=== PATIENT | male | born 1945 | race Caucasian/White ===

== ENCOUNTER 2016-12-16 14:29 | Outpatient (CLI) | payer MEDICARE, OTHER ==
--- NOTE | 2016-12-17 07:19 | Ultrasound Report ---
BILATERAL TESTICULAR ULTRASOUND: 12/16/2016 CLINICAL HISTORY: Patient has prostate cancer. TECHNIQUE: Real-time scanning was performed with union representative static images obtained. FINDINGS: Right testicle measures 4.6 x 2.0 x 3.4 cm. Right epididymis measures 3.2 x 0.8 x 1.1 cm. Right testicle shows normal parenchymal pattern and normal vascular flow. Right epididymis appears normal in size. Left testicle measures 4.1 x 2.1 x 3.0 cm. There is a small epididymal cyst or spermatocele present in the head of the epididymis measuring 0.2 x 0.3 x 0.4 cm. Right testicle shows normal parenchymal pattern and vascular flow. The exam of the left epididymis was limited. The tail of the left epididymis was not seen. IMPRESSION: TINY CYST OR SPERMATOCELE IS NOTED IN THE LEFT EPIDIDYMAL HEAD MEASURING 0.2 X 0.3 X 0.4 CM WITHOUT OTHER ABNORMALITY NOTED. JOB #: [id number] EXT JOB #:[id number]
== END 2016-12-16 14:30 | disposition home or self-care (01) ==
LOC: DI 14:29
PROVIDERS: ATTEND Urology
DX: C61 Malignant neoplasm of prostate (principal); F52.21 Male erectile disorder; N50.9 Disorder of male genital organs, unspecified
CPT/HCPCS: 76870

== ENCOUNTER 2017-03-29 07:45 | Outpatient (CLI) | payer MEDICARE, OTHER ==
[2017-03-29] MEDS ORDERED: IOPAMIDOL-300 50 ML VIAL ONE (07:50)
[2017-03-29] MEDS ORDERED: IOPAMIDOL-300 100 ML VIAL ONE (07:50)
[2017-03-29] MEDS ORDERED: IOPAMIDOL-300 50 ML VIAL PO ONE (08:36)
[2017-03-29] MEDS ORDERED: IOPAMIDOL-300 100 ML VIAL IVP ONE (08:36)
--- NOTE | 2017-03-29 23:41 | CT Report ---
EXAM: CT ABDOMEN AND PELVIS EXAM DATE: 03/29/2017 09:32 AM. CLINICAL HISTORY: Abdominal discomfort, weight loss. COMPARISONS: 07/28/2015. TECHNIQUE: Routine helical CT imaging was performed through the abdomen and pelvis. IV contrast: Yes . Enteric contrast: Yes. Reconstructions: Coronal and sagittal. In accordance with CT protocol optimization, one or more of the following dose reduction techniques w ere utilized for this exam: automated exposure control, adjustment of mA and/or KV based on patient s ize, or use of iterative reconstructive technique. FINDINGS: Lung Bases: Very small hiatal hernia, otherwise unremarkable. Liver: Scattered small cysts. No suspicious masses. Gallbladder/Bile Ducts: Unremarkable. Spleen: Unremarkable. Pancreas: Unremarkable. Adrenal Glands: Unremarkable. Kidneys: Tiny right renal cyst. No suspicious masses or hydronephrosis. Peritoneal Cavity/Bowel: No bowel obstruction or inflammatory process seen. No free air or significan t free fluid. No masses or adenopathy. The appendix is normal. No excessive stool burden. Pelvic Organs: Bladder and prostate appear unremarkable. Penile pump present. Vasculature: No aneurysms or other significant abnormality. Bones: No significant abnormality. Other: None. IMPRESSION: 1. No etiology for abdominal discomfort and weight loss seen. 2. Very small hiatal hernia. [facility] Referring Provider Line: [phone] SITE ID: [id number]
== END 2017-03-29 07:46 | disposition home or self-care (01) ==
LOC: LAB 07:45
PROVIDERS: ATTEND Internal Medicine
DX: R10.9 Unspecified abdominal pain (principal); R63.4 Abnormal weight loss; K44.9 Diaphragmatic hernia without obstruction or gangrene
CPT/HCPCS: 36415; 74177; 82565; Q9967

== ENCOUNTER 2017-06-23 09:21 | Emergency (ER) | payer OTHER ==
--- NOTE | 2017-06-23 09:37 | ED Physician Documentation ---
PD HPI SYNCOPE - Stated complaint Stated Complaint: SYNCOPE - Chief complaint Chief Complaint: Neuro - History obtained from History obtained from: Patient, Family - History of Present Illness Witnessed: Unwitnessed Timing - onset: Today Duration: Minutes Preceding symptoms: Vision changes, Light headed Associated symptoms: Nausea / vomiting Contributing factors: Other (sick with cough and congestion) Injury occurred: Head injury Similar symptoms before: Has not had sx before Recently seen: Not recently seen - Additional information Additional information: 72-year-old male with a history of hypertension and prostate cancer has developed a cough and congestion over the past several days and at about 4:00 in the morning he got up to go to the bathroom and he felt weak and lightheaded and dizzy and collapsed. He got up and got back to bed when he got up to go to the bathroom again in the morning at 9:00 his heard him collapse on the second episode of syncope. When she arrived there she states it took about 1 minute for the patient to become conscious again. He did have some vomiting after the first episode. He did injure his head on the first episode. Review of Systems Constitutional: reports: Fatigue. denies: Fever Eyes: denies: Decreased vision Ears: reports: Ear pain Nose: reports: Rhinorrhea / runny nose, Congestion Throat: reports: Sore throat Cardiac: denies: Chest pain / pressure, Palpitations Respiratory: reports: Cough. denies: Dyspnea GI: reports: Nausea, Vomiting : denies: Dysuria, Frequency Skin: denies: Rash Musculoskeletal: denies: Neck pain, Back pain, Extremity pain Neurologic: reports: Syncope, Head injury. denies: Generalized weakness, Focal weakness, Numbness PD PAST MEDICAL HISTORY - Past Medical History Cardiovascular: Hypertension, High cholesterol Respiratory: None Endocrine/Autoimmune: None GI: GERD : None, Other HEENT: Glaucoma, Other Psych: None Musculoskeletal: None Derm: None - Past Surgical History Ortho: Other HEENT: Other - Present Medications Home Medications: Ambulatory Orders Medication Instructions Recorded Confirmed Brinzolamide/Brimonidine Tart 1 drop EACHEYE BID 08/22/15 10/24/15 [Simbrinza 1%-0.2% Eye Drops] Cholecalciferol (Vitamin D3) 1,000 unit PO QPM 08/22/15 10/24/15 [Vitamin D] Cyclosporine [Restasis] 1 drop EACHEYE BID 08/22/15 10/24/15 Fenofibrate 145 mg PO DAILY 08/22/15 10/24/15 Glucosamine/D3/Boswellia Emmie 1,500 mg PO QPM 08/22/15 10/24/15 [Glucosamine Daily Complex Tab] Guaifenesin/Codeine Phosphate 5 ml PO QPM 08/22/15 08/22/15 [Guaifenesin AC Cough Syrup] Lisinopril [Zestril] 5 mg PO DAILY 08/22/15 10/24/15 Omeprazole [Prilosec] 40 mg PO DAILY 08/22/15 10/24/15 Pravastatin Sodium [Pravachol] 80 mg PO QPM 08/22/15 10/24/15 Azithromycin [Zithromax] 250 mg PO DAILY #6 tablet 06/23/17 - Allergies Allergies/Adverse Reactions: Allergies Allergy/AdvReac Type Severity Reaction Status Date / Time No Known Drug Allergies Allergy Verified 10/24/15 13:29 PD ED PE NORMAL - Vitals Vital signs reviewed: Yes - General General: Alert and oriented X 3, No acute distress, Well developed/nourished - HEENT HEENT: Atraumatic, PERRL, EOMI, Other - Neck Neck: Supple, no meningeal sign, No bony TTP - Cardiac Cardiac: RRR, No murmur - Respiratory Respiratory: No respiratory distress, Clear bilaterally - Abdomen Abdomen: Soft, Non tender - Back Back: No CVA TTP, No spinal TTP - Derm Derm: Normal color, Warm and dry, No rash - Extremities Extremities: No deformity, No edema - Neuro Neuro: Alert and oriented X 3, No motor deficit, No sensory deficit, Normal speech Eye Opening: Spontaneous Motor: Obeys Commands Verbal: Oriented GCS Score: 15 - Psych Psych: Normal mood, Normal affect Results - Vitals Vitals: Vital Signs - 24 hr 06/23/17 06/23/17 09:30 10:19 Temperature 36.8 C Heart Rate 78 82 Respiratory 12 18 Rate Blood Pressure 128/85 H 125/78 O2 Saturation 96 95 Oxygen O2 Source Room air - EKG (time done) 0930 Rate: Rate (enter#) (76) Other comments: Other comments (early transition) Compare to prior EKG: Old EKG unavailable Computer interpretation: Agree with computer - Labs Labs: Laboratory Tests 06/23/17 06/23/17 06/23/17 09:50 09:50 09:50 WBC 9.1 RBC 4.46 L Hgb 13.7 L Hct 39.5 L MCV 88.6 MCH 30.7 MCHC 34.7 RDW 12.8 Plt Count 198 MPV 8.6 Neut # 8.0 H Lymph # 0.4 L Clay # 0.7 Eos # 0.0 Baso # 0.0 Absolute Nucleated RBC 0.01 Nucleated RBC % 0.1 Sodium 134 L Potassium 3.7 Chloride 101 Carbon Dioxide 22 Anion Gap 11.0 BUN 12 Creatinine 1.1 Estimated GFR (MDRD) 66 L Glucose 156 H Calcium 9.4 Total Bilirubin 0.9 AST 21 ALT 18 Alkaline Phosphatase 30 L Troponin I < 0.04 Total Protein 7.7 Albumin 4.7 Globulin 3.0 Albumin/Globulin Ratio 1.6 Lipase 25 - Rads (name of study) CT head without Radiology: Prelim report reviewed (Impression: 1. No acute intracranial abnormal family identified. 2. Evidence of diffuse parenchymal volume loss and small amount of probable chronic microvascular ischemic change, likely age- related.), EMP read indepedently, See rad report Procedures - IVC sono (time) 1020 Bedside IVC sono: IVC measures (cm) (1.3), IVC collapsed c insp (cm) (complete) , Dehydration (est 1 liter down) PD MEDICAL DECISION MAKING - ED course Complexity details: reviewed old records, reviewed results, re-evaluated patient , considered differential, d/w patient, d/w family ED course: 72-year-old male with a history of hypertension and and prostate cancer has had 2 syncopal episodes this morning. He has had an upper respiratory tract infection over the past several days and this morning on evaluation here in the emergency department he is found to have otitis in the right middle ear and he does appear dehydrated on interrogation of the inferior vena cava. He is administered a liter of saline and 10 mg of dexamethasone intravenously and he did have head injury associated with the episode of syncope and vomiting following that a CT scan of the head is obtained as well. Electrocardiogram is normal appearing. Departure - Departure Disposition: 01 Home, Self Care Clinical Impression: Dehydration Otitis media Qualifiers: Otitis media type: suppurative Chronicity: acute Laterality: right Recurrence: not specified as recurrent Spontaneous tympanic membrane rupture: without spontaneous rupture Qualified Code(s): H66.001 - Acute suppurative otitis media without spontaneous rupture of ear drum, right ear Condition: Stable Instructions: ED Dehydration, ED Otitis Media Acute Adult Follow-Up: Nadia Schaeffer MD [Primary Care Provider] - Prescriptions: Azithromycin [Zithromax] 250 mg PO DAILY #6 tablet
[2017-06-23 10:20] VITALS: BP 125/78
[2017-06-23] MEDS ORDERED: DEXAMETHASONE 10 MG/ML VIAL IVP STA (10:26)
[2017-06-23] MEDS ORDERED: SODIUM CHLORIDE 0.9% 1,000 ML IV ONE (10:26)
[2017-06-23 10:33] LABS: BASOPHILS % (AUTO) 0.1 %; EOSINOPHILS % (AUTO) 0.2 %; HGB - HEMOGLOBIN 13.7 g/dL (14.0-18.0); LYMPHOCYTES # (AUTO) 0.4 10^3/uL (1.5-3.5); LYMPHOCYTES % (AUTO) 3.9 %; MEAN CORPUSCULAR HEMOGLOBIN 30.7 pg (27.0-31.0); MEAN CORPUSCULAR HGB CONC 34.7 g/dL (32.0-36.0); MEAN CORPUSCULAR VOLUME 88.6 fL (80.0-94.0); MEAN PLATELET VOLUME 8.6 fL (7.4-11.4); MONOCYTES # (AUTO) 0.7 10^3/uL (0.0-1.0); MONOCYTES % (AUTO) 7.8 %; PLT - PLATELET COUNT 198 10^3/uL (130-450); RED BLOOD COUNT 4.46 10^6/uL (4.70-6.10); RED CELL DISTRIBUTION WIDTH 12.8 % (12.0-15.0); WHITE BLOOD COUNT 9.1 x10^3/uL (4.8-10.8)
[2017-06-23 10:47] LABS: ALBUMIN 4.7 g/dL (3.2-5.5); ALBUMIN/GLOBULIN RATIO 1.6 (1.0-2.2); BILIRUBIN,TOTAL 0.9 mg/dL (0.2-1.0); CALCIUM 9.4 mg/dL (8.5-10.3); CREATININE 1.1 mg/dL (0.6-1.2); TOTAL PROTEIN 7.7 g/dL (6.7-8.2)
--- NOTE | 2017-06-23 12:54 | CT Report ---
EXAM: CT HEAD EXAM DATE: 06/23/2017 10:53 AM. CLINICAL HISTORY: Syncope, fall, head injury, vomiting. . COMPARISON: None. TECHNIQUE: Multiaxial CT images were obtained from the foramen magnum to the vertex. Reformats: Coron al. IV contrast: None. In accordance with CT protocol optimization, one or more of the following dose reduction techniques w ere utilized for this exam: automated exposure control, adjustment of mA and/or KV based on patient s ize, or use of iterative reconstructive technique. FINDINGS: Parenchyma: There is evidence of diffuse parenchymal volume loss. Minimal low-attenuation in the nilsa ventricular white matter. Dockery-white differentiation appears maintained. No acute hemorrhage, mass ef fect or midline shift. Extraaxial Spaces: Evidence of diffuse parenchymal volume loss with no acute extra axial collection i dentified. Ventricles: Appropriate in size and configuration. Sinuses and Orbits: Small amount of ethmoid opacity bilaterally, otherwise visualized paranasal sinus es and mastoid air cells appear clear. Bones: No depressed skull fracture. Other: None. IMPRESSION: 1. No acute intracranial abnormality identified. 2. Evidence of diffuse parenchymal volume loss and small amount of probable chronic microvascular isc hemic change, likely age-related. [facility] Referring Provider Line: [phone] SITE ID: [id number]
--- NOTE | 2017-06-23 12:54 | CT Preliminary Report ---
Exam: CT HEAD W/O IMPRESSION: 1. No acute intracranial abnormality identified. 2. Evidence of diffuse parenchymal volume loss and small amount of probable chronic microvascular isc hemic change, likely age-related. [facility] SITE ID: [id number]
== END 2017-06-23 13:30 | disposition home or self-care (01) ==
LOC: ED 09:21
DX: E86.0 Dehydration (principal); H66.001 Acute suppurative otitis media without spontaneous rupture of ear drum, right ear; I10 Essential (primary) hypertension; E78.00 Pure hypercholesterolemia, unspecified; C61 Malignant neoplasm of prostate
CPT/HCPCS: 36415; 70450; 80053; 83690; 84484; 85025; 93005; 96361; 96374; 99284

== ENCOUNTER 2017-06-26 11:16 | Emergency (ER) | payer OTHER ==
--- NOTE | 2017-06-26 12:32 | ED Physician Documentation ---
History of Present Illness - Stated complaint Stated Complaint: HEAD PX - Chief complaint Chief Complaint: Neuro - History obtained from History obtained from: Patient (pt was here on friday after a fall at home. he had a neg head CT. not on anticoagulation. since then the pt and his state that he has had increase in headaches and pain in the back of his head. he also has developed a bruise over his left eye. headaches are bilateral, no wose with position, not worse with palpation, not worse with light. No fevers. decreased PO intake.), Family Review of Systems Constitutional: denies: Fever, Chills Eyes: denies: Loss of vision, Decreased vision, Photophobia Ears: reports: Tinnitus/ringing Nose: denies: Congestion, Sinus pressure / pain Throat: denies: Dental pain / toothache, Oral lesions / sores Cardiac: denies: Chest pain / pressure Respiratory: denies: Dyspnea GI: reports: Nausea. denies: Abdominal Pain, Vomiting, Constipation, Diarrhea : denies: Dysuria Skin: reports: Abrasion (s) (above left eye). denies: Rash Musculoskeletal: denies: Neck pain, Back pain, Extremity pain, Joint pain Neurologic: reports: Headache PD PAST MEDICAL HISTORY - Past Medical History Cardiovascular: Hypertension, High cholesterol Respiratory: None Endocrine/Autoimmune: None GI: GERD : None, Other HEENT: Glaucoma, Other Psych: None Musculoskeletal: None Derm: None - Past Surgical History Past Surgical History: Yes Ortho: Other HEENT: Other - Present Medications Home Medications: Ambulatory Orders Medication Instructions Recorded Confirmed Brinzolamide/Brimonidine Tart 1 drop EACHEYE BID 08/22/15 10/24/15 [Simbrinza 1%-0.2% Eye Drops] Cholecalciferol (Vitamin D3) 1,000 unit PO QPM 08/22/15 10/24/15 [Vitamin D] Cyclosporine [Restasis] 1 drop EACHEYE BID 08/22/15 10/24/15 Fenofibrate 145 mg PO DAILY 08/22/15 10/24/15 Glucosamine/D3/Boswellia Emmie 1,500 mg PO QPM 08/22/15 10/24/15 [Glucosamine Daily Complex Tab] Guaifenesin/Codeine Phosphate 5 ml PO QPM 08/22/15 08/22/15 [Guaifenesin AC Cough Syrup] Lisinopril [Zestril] 5 mg PO DAILY 08/22/15 10/24/15 Omeprazole [Prilosec] 40 mg PO DAILY 08/22/15 10/24/15 Pravastatin Sodium [Pravachol] 80 mg PO QPM 08/22/15 10/24/15 Azithromycin [Zithromax] 250 mg PO DAILY #6 tablet 06/23/17 Amitriptyline [Elavil] 25 mg PO QPM #30 tablet 06/26/17 Ondansetron Odt [Zofran Odt] 4 mg TL Q6H PRN #10 tablet 06/26/17 - Allergies Allergies/Adverse Reactions: Allergies Allergy/AdvReac Type Severity Reaction Status Date / Time No Known Drug Allergies Allergy Verified 06/26/17 11:25 - Social History Does the pt smoke?: No Smoking Status: Never smoker Does the pt drink ETOH?: No Does the pt have substance abuse?: No - Immunizations Immunizations are current?: Yes PD ED PE NORMAL - Vitals Vital signs reviewed: Yes - General General: Alert and oriented X 3, No acute distress, Well developed/nourished - HEENT HEENT: Atraumatic, Ears normal, Moist mucous membranes, Pharynx benign - Neck Neck: No bony TTP - Cardiac Cardiac: RRR, No murmur - Respiratory Respiratory: No respiratory distress - Abdomen Abdomen: Soft - Derm Derm: Other (3 cm bruise over the upper lateral portion of the left eye, no active bleeding. 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, No motor deficit, No sensory deficit, Normal speech Eye Opening: Spontaneous Motor: Obeys Commands Verbal: Oriented GCS Score: 15 - Psych Psych: Normal mood, Normal affect Results - Vitals Vitals: Vital Signs - 24 hr 06/26/17 06/26/17 11:20 13:00 Temperature 35.9 C L Heart Rate 60 56 L Respiratory 18 12 Rate Blood Pressure 157/95 H 157/82 H O2 Saturation 99 99 Oxygen O2 Source Room air - Rads (name of study) Head and facial bone CT Radiology: Final report received (no acute process), EMP read contemporaneously PD MEDICAL DECISION MAKING - ED course Complexity details: reviewed old records, reviewed results, re-evaluated patient , considered differential, d/w patient ED course: pt with sx that are C/W post concussive syndrome. no new bleed on the the CT scans. had a long discussion with the family about the symptoms. we discussed medications and "brain rest". we discussed that they needed to follow up with their primary care provider for a follow up and to discuss neurology consult. Departure - Departure Disposition: 01 Home, Self Care Clinical Impression: Post concussive syndrome Condition: Good Instructions: TBI Follow-Up: Nadia Schaeffer MD [Primary Care Provider] - Prescriptions: Amitriptyline [Elavil] 25 mg PO QPM #30 tablet Ondansetron Odt [Zofran Odt] 4 mg TL Q6H PRN #10 tablet PRN Reason: Nausea / Vomiting Comments: Call your primary care provider for a follow up and to discuss a consult to see a headache specialist. avoid the activities that make your headache worse.
--- NOTE | 2017-06-26 13:20 | CT Report ---
EXAM: CT HEAD EXAM DATE: 06/26/2017 01:03 PM. CLINICAL HISTORY: Fall and headache. COMPARISON: 06/23/2017. TECHNIQUE: Multiaxial CT images were obtained from the foramen magnum to the vertex. Reformats: Coron al. IV contrast: None. In accordance with CT protocol optimization, one or more of the following dose reduction techniques w ere utilized for this exam: automated exposure control, adjustment of mA and/or KV based on patient s ize, or use of iterative reconstructive technique. FINDINGS: Parenchyma: No intraparenchymal hemorrhage. No evidence of mass, midline shift, or CT findings of acu te infarction. Dockery-white differentiation is distinct. Diffuse chronic microangiopathic white matter changes Extraaxial Spaces: Normal for age. No subdural or epidural collections. Ventricles: The ventricles and cortical sulci are enlarged, consistent with age-related tissue loss. Sinuses and orbits: Imaged paranasal sinuses, orbits, and mastoids show no significant abnormality. Bones: Unremarkable. Other: None. IMPRESSION: Generalized age-related cortical atrophic changes without evidence of acute intracranial abnormality. [facility] Referring Provider Line: [phone] SITE ID: [id number]
--- NOTE | 2017-06-26 13:24 | CT Preliminary Report ---
Exam: CT FACIAL BONES W/O IMPRESSION: 1. CT findings suggesting small left superior periorbital hematoma. No intraorbital extension. 2. No definite facial fracture. 3. The orbits appear normal with no mass, inflammatory process, or fluid collections seen. [facility] SITE ID: [id number]
--- NOTE | 2017-06-26 13:24 | CT Report ---
EXAM: CT MAXILLOFACIAL WITHOUT CONTRAST EXAM DATE: 06/26/2017 01:03 PM. CLINICAL HISTORY: Fall and left eye bruising. COMPARISONS: CT head 06/26/2017, 06/23/2017. TECHNIQUE: Thin-section axial images were acquired of the face without contrast. Post-processing: Cor onal and sagittal reformats. Other: None. In accordance with CT protocol optimization, one or more of the following dose reduction techniques w ere utilized for this exam: automated exposure control, adjustment of mA and/or KV based on patient s ize, or use of iterative reconstructive technique. FINDINGS: Soft Tissue: There is slight left superior periorbital soft tissue thickening which may represent sma ll hematoma. No intraorbital extension. Otherwise soft tissues of the face appear normal.The infratem poral fossa and parapharyngeal spaces are unremarkable. Orbits: Changes of bilateral lens replacement. Otherwise the orbits appear normal. Bones: No fracture or bone lesion. Temporomandibular Joints: The temporomandibular joints are symmetric and normally located. Sinuses: Small bilateral maxillary mucosal retention cysts versus polyps with mild mucosal thickening of the right and mild to moderate mucosal thickening in the left maxillary sinus. Small w with sinus mucosal retention cyst versus polyp. There is mild to moderate mucosal thickening of the ethmoid air cells. There is minimal mucosal thickening of the frontal sinus. Mastoid air cells and middle ear ca vities are clear. Other: None. IMPRESSION: 1. CT findings suggesting small left superior periorbital hematoma. No intraorbital extension. 2. No definite facial fracture. 3. The orbits appear normal with no mass, inflammatory process, or fluid collections seen. [facility] Referring Provider Line: [phone] SITE ID: [id number]
[2017-06-26] MEDS ORDERED: ONDANSETRON ODT 4 MG TABLET TL STA (13:44)
[2017-06-26 13:59] VITALS: BP 148/93
[2017-06-26] MEDS ORDERED: HYDROcod/ACETAM 5/325 MG TABLET PO STA (14:25)
== END 2017-06-26 14:25 | disposition home or self-care (01) ==
LOC: ED 11:16
DX: F07.81 Postconcussional syndrome (principal); I10 Essential (primary) hypertension; E78.00 Pure hypercholesterolemia, unspecified
CPT/HCPCS: 70450; 70486; 99283; A9270; Q0162

== ENCOUNTER 2017-09-24 12:51 | Outpatient (CLI) | payer MEDICARE, OTHER ==
[~2017-09-24 12:51] MED LIST: GADOBUTROL 7.5 MMOL/7.5 ML VIAL ONE
[2017-09-24] MEDS ORDERED: GADOBUTROL 7.5 MMOL/7.5 ML VIAL IVP ONE (13:37)
--- NOTE | 2017-09-24 14:17 | MRI Report ---
EXAM: MRI BRAIN WITHOUT AND WITH CONTRAST EXAM DATE: 09/24/2017 12:57 PM. CLINICAL HISTORY: MENTAL STATUS CHANGE. COMPARISON: CT head 06/26/2017 TECHNIQUE: Multiplanar, multisequence T1-weighted and fluid-sensitive MR sequences of the brain were performed. Sequences optimized for routine evaluation. Other: None. IV Contrast: Yes. 7.5 mL Gadavist FINDINGS: Brain Volume: Normal for age. Parenchyma: No evidence of acute or subacute infarct. Prominent bilateral frontoparietal subdural hem orrhages have [id number] mass effect on the underlying brain parenchyma as evidenced by sulcal effacement. However, given nearly equal size, no midline shift. Few FLAIR hyperintense subcortical wh ite matter lesions within cerebral hemispheres bilaterally. No evidence of parenchymal hemorrhage or parenchymal microhemorrhages. No abnormal parenchymal enhancement. Ventricles/Cisterns: No hydrocephalus. Bilateral frontoparietal subdural hemorrhages, somewhat hetero geneous, likely representing acute on subacute/chronic subdural hemorrhages. The right-sided subdural hemorrhage measures maximally 1.7 cm in width and the left subdural hemorrhage maximally measures 1. 7 cm. Orbits: Status post bilateral lens replacement surgery. The visualized orbits are otherwise unremarka ble. Sella Turcica: The pituitary gland, cavernous sinuses, suprasellar cistern and optic chiasm are unrem arkable. IAC: Symmetric and unremarkable. Vasculature: Normal signal flow void is seen in the major arterial structures at the skull base. The dural sinuses are patent and enhance normally. Sinuses: Mild mucosal thickening bile maxillary sinuses. Bones: No focal pathologic appearing marrow signal changes. Other: None. IMPRESSION: 1. Bilateral frontoparietal subdural hemorrhages, somewhat heterogeneous, likely representing acute o n subacute/chronic subdural hemorrhages. The right-sided subdural hemorrhage measures maximally 1.7 c m in width and the left subdural hemorrhage maximally measures 1.7 cm. 2. No evidence of acute or subacute infarct. 3. Prominent bilateral frontoparietal subdural hemorrhages have hvwn-[id number] mass effect on the u nderlying brain parenchyma as evidenced by sulcal effacement. However, given nearly equal size, no mi dline shift. 4. Few FLAIR hyperintense subcortical white matter lesions within cerebral hemispheres bilaterally. T hese lesions are nonspecific, and can be seen with the entire gamut of white matter conditions, inclu ding migraine headaches and as sequela of chronic microangiopathy. 5. No evidence of parenchymal hemorrhage or parenchymal microhemorrhages. No abnormal parenchymal enh ancement. CRITICAL RESULT: The findings were discussed with Dr. Schaeffer on 09/24/2017 14:10 [facility] The above findings were discussed with Nadia Schaeffer by Dr. Le Caicedo at 14:15 hrs on 09/24/17. Referring Provider Line: [phone] SITE ID: [id number]
== END 2017-09-24 12:52 | disposition home or self-care (01) ==
LOC: DI 12:51
PROVIDERS: ATTEND Internal Medicine
DX: I62.00 Nontraumatic subdural hemorrhage, unspecified (principal)
CPT/HCPCS: 70553; A9585

== ENCOUNTER 2017-09-24 13:52 | Emergency (ER) | payer MEDICARE, OTHER ==
[2017-09-24] MEDS ORDERED: SODIUM CHLORIDE 0.9% 1,000 ML IV ONE (14:16)
--- NOTE | 2017-09-24 14:17 | ED Physician Documentation ---
History of Present Illness - Stated complaint Stated Complaint: MRI RESULT - Chief complaint Chief Complaint: General - History obtained from History obtained from: Patient, Family - History of Present Illness Timing: Other (He had a fall actually 2 falls in June. He had a CT of thehead at the time which was without intracranial hemorrhage. Ever since then he has had increasing global headaches some confusion and feeling unsteady on his feet. He saw his doctor for a routine visit and was referred to MRI which was done today, he was brought over from MRI because he has bilateral subdural hemorrhages. He is not anticoagulated.) Review of Systems Ten Systems: 10 systems reviewed and negative Constitutional: reports: Sweats. denies: Fever Ears: reports: Reviewed and negative Throat: reports: Reviewed and negative Cardiac: reports: Reviewed and negative Respiratory: reports: Reviewed and negative PD PAST MEDICAL HISTORY - Past Medical History Past Medical History: Yes Cardiovascular: Hypertension, High cholesterol Respiratory: None Endocrine/Autoimmune: None GI: GERD : None, Other HEENT: Glaucoma, Other Psych: None Musculoskeletal: None Derm: None - Past Surgical History Past Surgical History: Yes Ortho: Other HEENT: Other - Present Medications Home Medications: Ambulatory Orders Medication Instructions Recorded Confirmed Brinzolamide/Brimonidine Tart 1 drop EACHEYE BID 08/22/15 10/24/15 [Simbrinza 1%-0.2% Eye Drops] Cholecalciferol (Vitamin D3) 1,000 unit PO QPM 08/22/15 10/24/15 [Vitamin D] Cyclosporine [Restasis] 1 drop EACHEYE BID 08/22/15 10/24/15 Fenofibrate 145 mg PO DAILY 08/22/15 10/24/15 Glucosamine/D3/Boswellia Emmie 1,500 mg PO QPM 08/22/15 10/24/15 [Glucosamine Daily Complex Tab] Lisinopril [Zestril] 5 mg PO DAILY 08/22/15 10/24/15 Omeprazole [Prilosec] 40 mg PO DAILY 08/22/15 10/24/15 Amitriptyline [Elavil] 25 mg PO QPM #30 tablet 06/26/17 - Allergies Allergies/Adverse Reactions: Allergies Allergy/AdvReac Type Severity Reaction Status Date / Time No Known Drug Allergies Allergy Verified 06/26/17 11:25 - Social History Does the pt smoke?: No Smoking Status: Never smoker Does the pt drink ETOH?: No Does the pt have substance abuse?: No - Family History Family history: reports: Non contributory - Immunizations Immunizations are current?: Yes PD ED PE NORMAL - Vitals Vital signs reviewed: Yes - General General: Alert and oriented X 3, No acute distress, Well developed/nourished - HEENT HEENT: PERRL, EOMI - Neck Neck: Supple, no meningeal sign, No bony TTP - Cardiac Cardiac: RRR, No murmur - Respiratory Respiratory: No respiratory distress, Clear bilaterally - Abdomen Abdomen: Normal bowel sounds, Non tender - Extremities Extremities: No deformity, No tenderness to palpate - Neuro Neuro: Alert and oriented X 3, authorization coordinator 2-12 intact, No motor deficit, No sensory deficit Eye Opening: Spontaneous Motor: Obeys Commands Verbal: Oriented (NIHSS zero) GCS Score: 15 - Psych Psych: Normal mood, Normal affect Results - Vitals Vitals: Vital Signs - 24 hr 09/24/17 09/24/17 09/24/17 13:59 15:08 16:13 Temperature 36.1 C L Heart Rate 64 61 62 Respiratory 18 15 16 Rate Blood Pressure 149/93 H 137/80 H 142/100 H O2 Saturation 98 100 100 Oxygen O2 Source Room air - EKG (time done) 1441 Rate: Rate (enter#) (57) Rhythm: NSR Angela: Normal Intervals: Normal MT QRS: Normal Ischemia: Non specific changes Computer interpretation: Agree with computer - Labs Labs: Laboratory Tests 09/24/17 09/24/17 09/24/17 14:23 14:23 14:23 WBC 6.5 RBC 3.90 L Hgb 12.0 L Hct 34.1 L MCV 87.5 MCH 30.8 MCHC 35.2 RDW 13.0 Plt Count 243 MPV 8.0 Neut # 4.4 Lymph # 1.2 L [place] # 0.7 Eos # 0.2 Baso # 0.0 Absolute Nucleated RBC 0.00 Nucleated RBC % 0.0 PT 12.4 INR 1.1 APTT 29.5 Sodium 134 L Potassium 3.6 Chloride 104 Carbon Dioxide 25 Anion Gap 5.0 L BUN 13 Creatinine 0.9 Estimated GFR (MDRD) 83 L Glucose 108 H Calcium 9.0 Total Bilirubin 0.3 AST 16 ALT 17 Alkaline Phosphatase 23 L Total Protein 6.4 L Albumin 4.3 Globulin 2.1 Albumin/Globulin Ratio 2.0 Lipase 34 - Rads (name of study) MRI Brain W/WO Radiology: EMP read contemporaneously (1. Bilateral frontoparietal subdural hemorrhages, somewhat heterogeneous, likely representing acute on subacute/ chronic subdural hemorrhages. The right-sided subdural hemorrhage measures maximally 1.7 cm in width and the left subdural hemorrhage maximally measures 1.7 cm. 2. No evidence of acute or subacute infarct. 3. Prominent bilateral frontoparietal subdural hemorrhages have [id number] mass effect on the underlying brain parenchyma as evidenced by sulcal effacement. However, given nearly equal size, no midline shift. 4. Few FLAIR hyperintense subcortical white matter lesions within cerebral hemispheres bilaterally. These lesions are nonspecific, and can be seen with the entire gamut of white matter conditions, including migraine headaches and as sequela of chronic microangiopathy. 5. No evidence of parenchymal hemorrhage or parenchymal microhemorrhages. No abnormal parenchymal enhancement. ) PD MEDICAL DECISION MAKING - ED course ED course: 72-year-old gentleman with acute on chronic subdural hemorrhages by MRI I spoke with Dr. Phan, the surgeon at [facility] and she accepted him in transfer, cobras were completed. He was kept n.p.o. Departure - Departure Disposition: 02 Transfer Acute Care Hosp Clinical Impression: Subdural hemorrhage Condition: Serious Discharge Date/Time: 09/24/17 16:49
[2017-09-24 14:26] LABS: BASOPHILS % (AUTO) 0.5 %; EOSINOPHILS # (AUTO) 0.2 10^3/uL (0.0-0.7); EOSINOPHILS % (AUTO) 3.4 %; LYMPHOCYTES # (AUTO) 1.2 10^3/uL (1.5-3.5); LYMPHOCYTES % (AUTO) 18.1 %; MEAN CORPUSCULAR HEMOGLOBIN 30.8 pg (27.0-31.0); MEAN CORPUSCULAR HGB CONC 35.2 g/dL (32.0-36.0); MEAN CORPUSCULAR VOLUME 87.5 fL (80.0-94.0); MONOCYTES # (AUTO) 0.7 10^3/uL (0.0-1.0); MONOCYTES % (AUTO) 10.1 %; NEUTROPHILS # (AUTO) 4.4 10^3/uL (1.5-6.6); NEUTROPHILS % (AUTO) 67.9 %; PLT - PLATELET COUNT 243 10^3/uL (130-450); WHITE BLOOD COUNT 6.5 x10^3/uL (4.8-10.8)
[2017-09-24 14:31] LABS: INR 1.1 (0.8-1.2); PT - PROTHROMBIN TIME 12.4 secs (9.9-12.6)
[2017-09-24 14:38] LABS: ALBUMIN 4.3 g/dL (3.2-5.5); BILIRUBIN,TOTAL 0.3 mg/dL (0.2-1.0); CREATININE 0.9 mg/dL (0.6-1.2); TOTAL PROTEIN 6.4 g/dL (6.7-8.2)
[2017-09-24 16:16] VITALS: BP 142/100
== END 2017-09-24 16:49 | disposition short-term general hospital (02) ==
LOC: ED 13:52
DX: I62.01 Nontraumatic acute subdural hemorrhage (principal); I62.03 Nontraumatic chronic subdural hemorrhage; I10 Essential (primary) hypertension; E03.9 Hypothyroidism, unspecified; Z91.81 History of falling
CPT/HCPCS: 36415; 80053; 83690; 85025; 85610; 85730; 93005; 96360; 96361; 99284; 99285

== ENCOUNTER 2017-09-24 16:34 | Outpatient (CLI) | payer MEDICARE, OTHER | END 2017-09-24 16:35 | disposition short-term general hospital (02) | LOC: EMS 16:34 | PROVIDERS: ATTEND Surgery | DX: I62.00 Nontraumatic subdural hemorrhage, unspecified (principal) | CPT/HCPCS: A0170; A0425; A0426 ==

== ENCOUNTER 2017-11-07 12:13 | Outpatient (CLI) | payer MEDICARE, OTHER ==
--- NOTE | 2017-11-07 14:34 | XRAY Report ---
CHEST X-RAY: 11/07/2017 HISTORY: Intermittent cough with increasing congestion. COMPARISON: 07/28/[address] and chest x-ray 06/30/2015. FINDINGS: The heart size is normal. The lungs are clear. There is no pleural fluid or pneumothorax. No significant bony pathology or interval change compared with prior. IMPRESSION: NEGATIVE TWO VIEW CHEST X-RAY. TD: 11/07/2017 12:40
== END 2017-11-07 12:14 | disposition home or self-care (01) ==
LOC: DI 12:13
PROVIDERS: ATTEND Internal Medicine
DX: R05 Cough (principal)
CPT/HCPCS: 71046

== ENCOUNTER 2018-03-25 11:41 | Outpatient (CLI) | payer MEDICARE ==
[2018-03-25] MEDS ORDERED: GADOBUTROL 7.5 MMOL/7.5 ML VIAL ONE (11:50)
[2018-03-25] MEDS ORDERED: GADOBUTROL 7.5 MMOL/7.5 ML VIAL IVP ONE (13:20)
--- NOTE | 2018-03-25 13:36 | MRI Report ---
Reason: SUBDURAL HEMORRHAGE Procedure Date: 03/25/2018 Accession Number: [id number] / [id number] Procedure: MRI - Brain W/WO CPT Code: FULL RESULT: EXAM: MRI BRAIN WITHOUT AND WITH CONTRAST EXAM DATE: 03/25/2018 12:29 PM. CLINICAL HISTORY: History of bilateral subdural hematomas. COMPARISON: Prior MRI brain 09/24/2017, prior CT of the head 06/26/2017. TECHNIQUE: Multiplanar, multisequence T1-weighted and fluid-sensitive MR sequences of the brain were performed. Sequences optimized for routine evaluation. Other: None. IV Contrast: 7.5 cc Gadavist. Findings: Relevant images are indicated (image number, series number). No interval acute/subacute ischemic change. Previously seen bilateral convexity subdural hematomas have essentially resolved with trivial remaining overlying the right frontal lobe, no mass-effect. Brain parenchyma demonstrates no hemorrhage, mass or midline shift. Basal cisterns, bilateral IACs, bilateral Meckel's caves are unremarkable. Orbital contents negative, patient status post bilateral lens surgery. Normal expected vascular flow voids of the major arteries/veins. Minimal mucosal thickening left sphenoid sinus. Postcontrast imaging demonstrates no abnormal enhancement of the brain, meninges. Craniocervical junction, limited evaluation of cervical cord negative. Mid brain negative. Pituitary unremarkable. No significant white matter disease, or cortical atrophy. Impressions: 1. No acute/subacute ischemic change. 2. Previously identified bilateral convexity subdural hematomas have essentially resolved. 3. Remaining brain/orbits are unremarkable. [facility]
== END 2018-03-25 11:42 | disposition home or self-care (01) ==
LOC: DI 11:41
PROVIDERS: ATTEND Internal Medicine
DX: I62.00 Nontraumatic subdural hemorrhage, unspecified (principal); M19.011 Primary osteoarthritis, right shoulder; M75.101 Unspecified rotator cuff tear or rupture of right shoulder, not specified as traumatic; S43.491A Other sprain of right shoulder joint, initial encounter; M75.81 Other shoulder lesions, right shoulder
CPT/HCPCS: 70553; 73221; A9585

== ENCOUNTER 2018-03-25 11:41 | Outpatient (CLI) | payer MEDICARE, OTHER ==
--- NOTE | 2018-03-26 10:37 | MRI Report ---
Reason: PAININ RIGHT SHOULDER Procedure Date: 03/25/2018 Accession Number: [id number] / [id number] Procedure: MRI - Shoulder RT W/O CPT Code: FULL RESULT: EXAM: RIGHT SHOULDER MRI WITHOUT CONTRAST EXAM DATE: 03/25/2018 12:21 PM. CLINICAL HISTORY: Right shoulder pain. Rotator cuff tear? COMPARISON: SHOULDER 3 VIEW RT 02/24/2018 2:15 PM. TECHNIQUE: Multiplanar, multisequence T1-weighted and fluid-sensitive sequences of the shoulder without contrast. Other: None. FINDINGS: Acromioclavicular Region: The acromion is type II. There is moderate acromioclavicular joint osteoarthritis with narrowing of the subacromial space. There is a moderate-sized bursal effusion. Glenohumeral Region: No subluxation. No effusion or loose bodies. The articular cartilage is unremarkable. Bone Marrow: No fracture, marrow edema or bone lesions. Labrum: The labrum is unremarkable on this nonarthrographic study. Musculature/Rotator Cuff: There is near full-thickness tearing of the entire supraspinatus tendon with mild atrophy. There is a full-thickness tear of the anterior fibers measuring approximately 7 x 5 mm. Minimal infraspinatus tendinosis. Severe tendinosis and high-grade partial-thickness tears of the deep and superficial fibers of subscapularis at the insertion. No appreciable atrophy of subscapularis. Biceps Tendon: Mild tendinosis of the proximal long head of biceps. Other: The subcutaneous tissues are unremarkable. IMPRESSION: 1. Moderate acromioclavicular joint osteoarthritis. 2. Near complete rupture of the supraspinatus with mild atrophy. There is a full-thickness tear of the anterior fibers. 3. High-grade partial-thickness tear of subscapularis. 4. Mild tendinosis of the proximal long head of biceps. [facility] MUSCULOSKELETAL RADIOLOGY SECTION
== END 2018-03-25 11:42 | disposition home or self-care (01) ==
LOC: DI 11:41
PROVIDERS: ATTEND Orthopaedic Surgery Sports Medicine
DX: M19.011 Primary osteoarthritis, right shoulder (principal); M75.101 Unspecified rotator cuff tear or rupture of right shoulder, not specified as traumatic; S43.491A Other sprain of right shoulder joint, initial encounter; M75.81 Other shoulder lesions, right shoulder

== ENCOUNTER 2018-05-12 12:54 | Outpatient (CLI) | payer MEDICARE, OTHER | END 2018-05-12 12:55 | disposition home or self-care (01) | LOC: RT 12:54 | PROVIDERS: ATTEND Orthopaedic Surgery | DX: Z01.810 Encounter for preprocedural cardiovascular examination (principal) | CPT/HCPCS: 93005 ==

== ENCOUNTER 2019-01-11 12:03 | Outpatient (CLI) | payer OTHER ==
--- NOTE | 2019-01-12 12:54 | XRAY Report ---
Reason: L THUMB PAIN Procedure Date: 01/11/2019 Accession Number: [id number] / [id number] Procedure: XR - Finger(s) LT CPT Code: FULL RESULT: EXAM: LEFT FIRST DIGIT RADIOGRAPHY EXAM DATE: 01/11/2019 12:12 PM. CLINICAL HISTORY: L THUMB PAIN. COMPARISON: None. TECHNIQUE: 3 views. FINDINGS: Bones: Normal. No fracture or bone lesion. Joints: First metacarpal carpal joint space osteophyte, joint space narrowing, subchondral sclerosis and cystic changes with possible small loose body. First IP joint osteophyte mild joint space narrowing Soft Tissues: Normal. No soft tissue swelling. IMPRESSION: SHANON [facility]
== END 2019-01-11 12:04 | disposition home or self-care (01) ==
LOC: DI 12:03
PROVIDERS: ATTEND Internal Medicine
DX: M19.042 Primary osteoarthritis, left hand (principal)
CPT/HCPCS: 73140

== ENCOUNTER 2019-05-11 13:25 | Outpatient (CLI) | payer MEDICARE, OTHER ==
--- NOTE | 2019-05-11 15:25 | MRI Report ---
Reason: COGNITIVE CHANGES Procedure Date: 05/11/2019 Accession Number: [id number] / [id number] Procedure: MRI - Brain W/O CPT Code: Final Report FULL RESULT: EXAM: MRI BRAIN WITHOUT CONTRAST EXAM DATE: 05/11/2019 02:47 PM. CLINICAL HISTORY: Cognitive changes. Follow up subdural hemorrhage. Increasing memory issues. COMPARISON: BRAIN W/WO 03/25/2018 12:24 PM BRAIN W/WO 09/24/2017 1:00 PM. TECHNIQUE: Multiplanar, multisequence T1-weighted and fluid-sensitive MR sequences of the brain were performed. Sequences optimized for routine evaluation. Other: None. IV Contrast: None. FINDINGS: Brain Volume: Normal for age. Parenchyma/Dura: No mass, acute infarct or hemorrhage. No significant quick matter or white matter signal abnormality is identified. Ventricles/Cisterns: No hydrocephalus. No abnormal extra-axial hemorrhage. In particular, no recurrence of frontoparietal subdural hematomas is appreciated. Thin subdural hygromas are seen superficial to the anterior frontal lobes bilaterally measuring 4-5 mm. Orbits: Unremarkable. Note is made of bilateral lens removal. Sella Turcica: The pituitary gland, cavernous sinuses, suprasellar cistern and optic chiasm are unremarkable. IAC: Symmetric and unremarkable. Vasculature: Normal signal flow void is seen in the major arterial structures at the skull base. Sinuses: No acute appearing sinus disease. Small focus of polypoid mucosal thickening is seen inferiorly in the maxillary antra bilaterally and in the anterolateral left sphenoid sinus. Patchy mucosal thickening is seen laterally in left mastoid air cells. Bones: No focal pathologic appearing marrow signal changes. Postoperative change with small high frontal and parietal laurel holes bilaterally are once again noted. Other: None. IMPRESSION: 1. No acute intracranial abnormality. No infarct, mass, or hemorrhage. 2. No recurrence of frontoparietal subdural hematomas are evident. There are likely are thin subdural hygroma superficial to the anterior frontal lobes bilaterally measuring maximally 4-5 mm in diameter, not significantly changed. RAD[facility]
== END 2019-05-11 13:26 | disposition home or self-care (01) ==
LOC: DI 13:25
PROVIDERS: ATTEND Psychiatry & Neurology Neurology
DX: R41.89 Other symptoms and signs involving cognitive functions and awareness (principal); I62.00 Nontraumatic subdural hemorrhage, unspecified
CPT/HCPCS: 70551

== ENCOUNTER 2019-09-21 13:21 | Outpatient (CLI) | payer OTHER ==
--- NOTE | 2019-09-21 17:47 | CT Report ---
Reason: CHRONIC FRONTAL SINUSITIS Procedure Date: 09/21/2019 Accession Number: [id number] / [id number] Procedure: CT - Sinuses CPT Code: Final Report FULL RESULT: EXAM: CT SINUS EXAM DATE: 09/21/2019 01:45 PM. HISTORY: Chronic frontal sinusitis. COMPARISONS: FACIAL BONES W/O 06/26/2017 12:54 PM. TECHNIQUE: Bone algorithm CT imaging performed through the sinuses. Iodinated IV contrast: None. Reconstructions: Multiplanar reformats. In accordance with CT protocol optimization, one or more of the following dose reduction techniques were utilized for this exam: automated exposure control, adjustment of mA and/or KV based on patient size, or use of iterative reconstructive technique. FINDINGS: A small retention cyst/polyp is seen anteriorly in the left sphenoid air cell. Sphenoid sinuses otherwise clear. The right frontal sinus is not developed. The left frontal sinus is well aerated. Mucosal thickening in the left frontal sinus on the comparison study has resolved. There is trace scattered ethmoid air cell mucosal thickening which has improved since the comparison study. Trace maxillary sinus mucosal thickening is present. This has improved. Retention cyst/polyp formation has resolved in the left maxillary sinus and is improved in the right maxillary sinus. Surgically created nasal antral windows are patent. Mucosal thickening involving the nasal antral windows bilaterally has improved. The nasal septum is bowed to the right. The nasal cavity is patent. Mastoid air cells and middle ear cavity are well aerated. IMPRESSION: 1. Resolution of mucosal thickening in the left frontal sinus. 2. Improvement in maxillary sinus mucosal thickening and retention cyst/polyp formation bilaterally. 3. Improvement in ethmoid air cell thickening bilaterally. [facility]
== END 2019-09-21 13:22 | disposition home or self-care (01) ==
LOC: DI 13:21
PROVIDERS: ATTEND Otolaryngology Otolaryngology/Facial Plastic Surgery
DX: J32.1 Chronic frontal sinusitis (principal)
CPT/HCPCS: 70486

== ENCOUNTER 2019-10-20 11:54 | Outpatient (CLI) | payer OTHER ==
[2019-10-20 12:14] LABS: CREATININE 0.8 mg/dL (0.6-1.2)
[2019-10-20] MEDS ORDERED: GADOBUTROL 7.5 MMOL/7.5 ML VIAL ONE (12:48)
[2019-10-20] MEDS ORDERED: GADOBUTROL 7.5 MMOL/7.5 ML VIAL IVP ONE (13:08)
--- NOTE | 2019-10-20 15:57 | MRI Report ---
Reason: HEADACHE Procedure Date: 10/20/2019 Accession Number: [id number] / [id number] Procedure: MRI - Brain W/WO CPT Code: Final Report FULL RESULT: EXAM: MRI BRAIN WITHOUT AND WITH CONTRAST EXAM DATE: 10/20/2019 01:18 PM. CLINICAL HISTORY: 74-year-old male. HEADACHE. COMPARISON: MR brain 05/11/2019 TECHNIQUE: Multiplanar, multisequence T1-weighted and fluid-sensitive MR sequences of the brain were performed before and after administration of intravenous contrast. Sequences optimized for routine evaluation. Other: None. IV Contrast: 7 mL Gadavist FINDINGS: Brain Volume: Normal for age. Parenchyma: No acute hemorrhage, mass, or infarct. No white matter lesions identified. No abnormal enhancement. Ventricles/Cisterns: No hydrocephalus. No abnormal extra-axial fluid collection or hemorrhage. Orbits: Status post bilateral lens replacement surgery. The visualized orbits are otherwise unremarkable. Sella Turcica: The pituitary gland, cavernous sinuses, suprasellar cistern and optic chiasm are unremarkable. IAC: Symmetric and unremarkable. Vasculature: Normal signal flow void is seen in the major arterial structures at the skull base. The dural sinuses are patent and enhance normally. Sinuses: Mucous retention cysts/polyps within the maxillary sinuses bilaterally left sphenoid sinus. Bones: No focal pathologic appearing marrow signal changes. Other: None. IMPRESSION: 1. No MRI evidence of acute intracranial abnormality. Specifically, no evidence of acute or subacute infarct, acute intracranial hemorrhage, mass, midline shift, or hydrocephalus. No significant T2/FLAIR hyperintense white matter disease burden. No abnormal intracranial enhancement. [facility]
== END 2019-10-20 11:55 | disposition home or self-care (01) ==
LOC: DI 11:54
PROVIDERS: ATTEND Otolaryngology Otolaryngology/Facial Plastic Surgery
DX: J32.1 Chronic frontal sinusitis (principal); R51 Headache
CPT/HCPCS: 36415; 70553; 82565; A9585

== ENCOUNTER 2019-11-30 12:04 | Outpatient (CLI) | payer OTHER, MEDICARE ==
[2019-11-30] MEDS ORDERED: IOVERSOL 320 50 ML VIAL ONE (12:30)
[2019-11-30] MEDS ORDERED: IOVERSOL 320 100 ML VIAL IVP ONE ×2 (12:30→13:39)
[2019-11-30 12:50] LABS: CREATININE 0.7 mg/dL (0.6-1.2)
[2019-11-30] MEDS ORDERED: IOVERSOL 320 50 ML VIAL PO ONE (13:40)
--- NOTE | 2019-11-30 15:03 | XRAY Report ---
PROCEDURE: Chest 2 View X-Ray INDICATIONS: COUGH TECHNIQUE: 2 view(s) of the chest. COMPARISON: 11/07/2017 FINDINGS: Surgical changes and devices: None. Lungs and pleura: No pleural effusions or pneumothorax. Lungs are clear. Mediastinum: Mediastinal contours are normal. Heart size is normal. Bones and chest wall: No suspicious bony abnormalities. Soft tissues appear unremarkable. IMPRESSION: No acute pulmonary process demonstrated. No significant change from prior study. Reviewed by: Abhi Seay MD on 11/30/2019 3:02 PM PDT Approved by: Abhi Seay MD on 11/30/2019 3:02 PM PDT Station ID: [id number]
--- NOTE | 2019-11-30 15:43 | CT Report ---
PROCEDURE: Abdomen/Pelvis W INDICATIONS: LLQ PAIN CONTRAST: IV CONTRAST: Optiray 320 ml: 100 PO CONTRAST: Optiray 320 ml50 TECHNIQUE: After the administration of oral and intravenous contrast, 5 mm thick sections acquired from the diap hragms to the symphysis. 5 mm thick coronal and sagittal reformats were acquired. For radiation dos e reduction, the following was used: automated exposure control, adjustment of mA and/or kV accordin g to patient size. COMPARISON: None. FINDINGS: Image quality: Excellent. ABDOMEN: Lung bases: Lung bases are clear. Heart size is normal. Solid organs: Multiple hepatic cysts again noted. Otherwise unremarkable liver and spleen. Normal maggie earance of the gallbladder. Biliary system appears nondilated. Pancreas and adrenal glands are unrema rkable. No hydronephrosis. Normal CT appearance of the kidneys otherwise. Peritoneum and bowel: Bowel loops demonstrate normal wall thickness and caliber. No free fluid or a ir. Nodes and vessels: No retroperitoneal or mesenteric adenopathy by size criteria. Aorta and inferior vena cava are normal in size. Miscellaneous: No ventral hernias. PELVIS: Genitourinary: Bladder wall thickness is normal. Miscellaneous: No inguinal hernias or adenopathy. Penile prosthesis again noted. Bones: No suspicious bony lesions. No vertebral body compression fractures. IMPRESSION: No acute finding or other finding to explain abdominal pain. Reviewed by: Abhi Seay MD on 11/30/2019 3:42 PM PDT Approved by: Abhi Seay MD on 11/30/2019 3:42 PM PDT Station ID: [id number]
== END 2019-11-30 12:05 | disposition home or self-care (01) ==
LOC: DI 12:04
PROVIDERS: ATTEND Internal Medicine
DX: R10.32 Left lower quadrant pain (principal); R05 Cough; R79.89 Other specified abnormal findings of blood chemistry
CPT/HCPCS: 36415; 71046; 74177; 82565; Q9967

== ENCOUNTER 2020-08-02 11:19 | Outpatient (CLI) | payer OTHER ==
--- NOTE | 2020-08-02 12:47 | XRAY Report ---
PROCEDURE: Hip w/Pelvis 2-3V RT INDICATIONS: PAIN IN RIGHT HIP TECHNIQUE: AP pelvis with lateral view(s) of the bilateral hip(s). COMPARISON: None. FINDINGS: No fracture. Lower lumbar spondylosis and facet arthropathy. Mild bilateral hip joint degeneration. P enile postsurgical changes incidentally noted Soft tissues: The visualized bowel gas pattern is normal. No suspicious soft tissue calcifications. IMPRESSION: Mild bilateral hip joint degeneration. If the patient's pain or other symptoms persist, consider furt her evaluation with MRI. Reviewed by: Michelet Scott MD on 08/02/2020 12:46 PM PST Approved by: Michelet Scott MD on 08/02/2020 12:46 PM PST Station ID: [id number]
== END 2020-08-02 11:20 | disposition home or self-care (01) ==
LOC: DI 11:19
PROVIDERS: ATTEND Internal Medicine
DX: M25.551 Pain in right hip (principal); M16.0 Bilateral primary osteoarthritis of hip

== ENCOUNTER 2020-11-13 10:22 | Outpatient (CLI) | payer OTHER ==
--- NOTE | 2020-11-13 14:36 | MRI Report ---
PROCEDURE: Hip RT W/O INDICATIONS: RIGHT HIP PAIN TECHNIQUE: Noncontrast coronal T1 spin echo and STIR through the bony pelvis. Coronal and axial T2 fast spin ec ho with fat saturation, sagittal T1 spin echo, and oblique axial T2 fast spin echo with fat saturatio n through the hip. COMPARISON: Right hip radiograph dated 08/02/2020. FINDINGS: Image quality: Excellent. Bones and joints: Mild to moderate bilateral hip joint osteoarthritic changes are seen with superior joint space narrowing and subchondral sclerosis. No marrow edema. No intraosseous lesions or fractur es. No avascular necrosis of the femoral heads. The visualized lower lumbar spine appears normally aligned. Tendons: The gluteus medius and minimus tendons appear mildly thickened with heterogeneous T2 hyperi ntense signal, without associated muscle atrophy. The iliopsoas tendon appears intact, without adjac ent bursal fluid collections. The origin of the hamstring tendon is intact at the ischial tuberosity . Labrum and cartilage: There is suggestion of subtle focal superior anterior labral tear in the absenc e of intra-articular contrast. Thinning of articulating cartilages over right femoral head is seen. T he alpha angle of the femur is within normal limits at less than 55 degrees. Soft tissues: Visualized muscles demonstrate normal bulk and internal signal. The proximal sciatic neurovascular bundle appears normal adjacent to the hamstring tendons. No free pelvic fluid. Bladde r wall thickness is normal. Genitourinary structures and bowel loops appear normal where visualized. IMPRESSION: 1. Symmetric appearing mild to moderate bilateral hip joint osteoarthritis. No fracture or dislocatio n. No evidence of avascular necrosis of femoral heads. No suspicious bony lesion. 2. Mild right gluteus medius and minimus tendinosis and low-grade partial-thickness tear near greater trochanter. No other muscle or tendon signal abnormality. 3. Suggestion of subtle superior anterior labral tear in the absence of intra-articular contrast. Reviewed by: Po Lanza MD on 11/13/2020 2:34 PM PDT Approved by: Po Lanza MD on 11/13/2020 2:34 PM PDT Station ID: [id number]
== END 2020-11-13 10:23 | disposition home or self-care (01) ==
LOC: DI 10:22
PROVIDERS: ATTEND Physical Medicine & Rehabilitation Pain Medicine
DX: M25.551 Pain in right hip (principal); M16.0 Bilateral primary osteoarthritis of hip; M67.88 Other specified disorders of synovium and tendon, other site

== ENCOUNTER 2021-12-25 15:35 | Outpatient (CLI) | payer OTHER ==
[2021-12-25 15:47] LABS: BASOPHILS % (AUTO) 0.2 %; EOSINOPHILS # (AUTO) 0.1 10^3/uL (0.0-0.7); HCT - HEMATOCRIT 37.8 % (42.0-52.0); HGB - HEMOGLOBIN 13.2 g/dL (14.0-18.0); LYMPHOCYTES # (AUTO) 1.3 10^3/uL (1.5-3.5); LYMPHOCYTES % (AUTO) 27.5 %; MEAN CORPUSCULAR HEMOGLOBIN 31.3 pg (27.0-31.0); MEAN CORPUSCULAR HGB CONC 34.9 g/dL (32.0-36.0); MEAN CORPUSCULAR VOLUME 89.6 fL (80.0-94.0); MEAN PLATELET VOLUME 9.6 fL (7.4-11.4); MONOCYTES # (AUTO) 0.6 10^3/uL (0.0-1.0); MONOCYTES % (AUTO) 12.4 %; NEUTROPHILS # (AUTO) 2.7 10^3/uL (1.5-6.6); NEUTROPHILS % (AUTO) 56.7 %; PLT - PLATELET COUNT 253 10^3/uL (130-450); RED BLOOD COUNT 4.22 10^6/uL (4.70-6.10); RED CELL DISTRIBUTION WIDTH 12.5 % (12.0-15.0); WHITE BLOOD COUNT 4.7 x10^3/uL (4.8-10.8)
[2021-12-25 16:06] LABS: ALBUMIN 4.6 g/dL (3.2-5.5); ALBUMIN/GLOBULIN RATIO 1.6 (1.0-2.2); ALKALINE PHOSPHATASE 39 IU/L (42-121); ALT ALANINE AMINOTRANSFERASE 21 IU/L (10-60); AST ASPARTATE AMINOTRANSFERASE 21 IU/L (10-42); BILIRUBIN,TOTAL 0.7 mg/dL (0.2-1.0); BUN - BLOOD UREA NITROGEN 12 mg/dL (6-20); CALCIUM 9.8 mg/dL (8.5-10.3); CARBON DIOXIDE - CO2 24 mmol/L (21-32); CHLORIDE 104 mmol/L (101-111); CHOL/HDL RATIO 5.1 (<5.0); CHOLESTEROL 192 mg/dL; CREATININE 0.7 mg/dL (0.6-1.2); GFR - MDRD 110 (>89); GLUCOSE 109 mg/dL (70-100); HDL CHOLESTEROL 38 mg/dL; LDL CHOLESTEROL,CALCULATED 142 mg/dL; LDL/HDL RATIO 3.7 (<3.6); POTASSIUM 3.9 mmol/L (3.5-5.0); SODIUM 137 mmol/L (135-145); TOTAL PROTEIN 7.5 g/dL (6.7-8.2); TRIGLYCERIDES 59 mg/dL; VLDL CHOLESTEROL 12 mg/dL
[2021-12-25 16:17] LABS: THYROID STIMULATING HORMONE 0.8 uIU/mL (0.34-5.60)
[2021-12-25 16:56] LABS: PSA TOTAL 0.007 ng/mL (0.000-2.000)
[2021-12-25 20:43] LABS: ESTIMATED AVERAGE GLUCOSE 114 mg/dL (70-100); HEMOGLOBIN A1c% 5.6 % (4.27-6.07)
== END 2021-12-25 15:36 | disposition home or self-care (01) ==
LOC: LAB 15:35
PROVIDERS: ATTEND Internal Medicine
DX: Z00.00 Encounter for general adult medical examination without abnormal findings (principal); F32.A Depression, unspecified; K59.00 Constipation, unspecified; R13.10 Dysphagia, unspecified; R53.83 Other fatigue; K21.9 Gastro-esophageal reflux disease without esophagitis; H40.9 Unspecified glaucoma; H91.90 Unspecified hearing loss, unspecified ear; Z86.2 Personal history of diseases of the blood and blood-forming organs and certain disorders involving the immune mechanism; Z86.79 Personal history of other diseases of the circulatory system; R73.9 Hyperglycemia, unspecified; E78.5 Hyperlipidemia, unspecified; M19.90 Unspecified osteoarthritis, unspecified site; C61 Malignant neoplasm of prostate; J30.2 Other seasonal allergic rhinitis; H93.19 Tinnitus, unspecified ear
CPT/HCPCS: 36415; 80053; 80061; 82607; 83036; 83721; 84153; 84443; 85025

== ENCOUNTER 2022-01-31 15:09 | Outpatient (CLI) | payer OTHER | END 2022-01-31 15:10 | disposition home or self-care (01) | LOC: LAB 15:09 | PROVIDERS: ATTEND Internal Medicine | DX: D64.9 Anemia, unspecified (principal) | CPT/HCPCS: 82570; 84156; 84166 ==

== ENCOUNTER 2022-02-12 08:30 | Outpatient (CLI) | payer OTHER ==
[2022-02-15 12:08] LABS: CREATININE URINE 51.2 mg/dL (Not Estab.); CREATININE URINE 24HR 1178 mg/24 hr (1000-2000); M-SPIKE % URINE Not Observed % (Not Observed); PROTEIN TOTAL URINE 6.2 mg/dL (Not Estab.); PROTEIN URINE 24HR 143 mg/24 hr (30-150)
== END 2022-02-12 23:59 | disposition home or self-care (01) ==
LOC: LAB 08:30
PROVIDERS: ATTEND Internal Medicine
DX: D64.9 Anemia, unspecified (principal)
CPT/HCPCS: 82570; 84156; 84166

== ENCOUNTER 2022-05-09 08:00 | Outpatient (CLI) | payer OTHER ==
[2022-05-09 16:31] LABS: BILIRUBIN,URINE NEGATIVE (NEGATIVE); GLUCOSE, URINE (UA) NEGATIVE (NEGATIVE); KETONES,URINE (UA) NEGATIVE (NEGATIVE); LEUKOCYTE ESTERASE, URINE NEGATIVE (NEGATIVE); NITRITE,URINE NEGATIVE (NEGATIVE); OCCULT BLOOD,URINE NEGATIVE (NEGATIVE); PROTEIN,URINE NEGATIVE (NEGATIVE); UROBILINOGEN,URINE 0.2 (NORMAL) E.U./dL (NORMAL)
[2022-05-09 16:39] LABS: CLARITY,URINE CLEAR (CLEAR)
[2022-05-09 16:55] LABS: BACTERIA,URINE None Seen /HPF (None Seen); RBC,URINE None Seen /HPF (0-5); SQUAMOUS EPITHELIAL CELL,UR NONE SEEN (<= Few); WBC,URINE 0-3 /HPF (0-3)
== END 2022-05-09 23:59 | disposition home or self-care (01) ==
LOC: LAB.R 08:00
PROVIDERS: ATTEND Internal Medicine
DX: R10.9 Unspecified abdominal pain (principal)
CPT/HCPCS: 81001; 87086

== ENCOUNTER 2022-05-18 12:51 | Outpatient (CLI) | payer OTHER ==
--- NOTE | 2022-05-18 19:04 | CT Report ---
PROCEDURE: ABDOMEN/PELVIS WO INDICATIONS: RIGHT FLANK PAIN TECHNIQUE: Noncontrast 5 mm thick sections acquired from the diaphragms to the symphysis. 5 mm coronal and sagi ttal reformats were then performed. For radiation dose reduction, the following was used: automated exposure control, adjustment of mA and/or kV according to patient size. COMPARISON: 11/30/2019 FINDINGS: Image quality: Good Lower chest: Suspected basal scarring/atelectasis. Tiny hiatal hernia. Solid organs: Left lobe cyst. Subcentimeter lesions are too small to characterize. These are probably stable, although not well evaluated on noncontrast imaging. Liver is otherwise unremarkable. Gallbla dder is within normal limits. No pathologic dilation of the biliary tree or pancreatic duct. No splenomegaly. No adrenal nodules. N o radiopaque calculi. No hydronephrosis. Indeterminate lesion in the right anterior region is stable compared to 2020 (axial image 27). Vessels and lymph nodes: Atherosclerotic calcifications. Similar prominent diameter of the right comm on iliac artery measuring up to 2 cm. No pathologic adenopathy by size criteria. Bowel and peritoneum: No acute bowel obstruction. No pathologic ascites. Normal appendix. Body wall: Tiny fat-containing midline ventral hernia. Pelvis: Penile implant and possible prostatectomy. Bladder is unremarkable. Bones: No acute or suspicious osseous abnormality. Lumbosacral fusion hardware. IMPRESSION: No acute abnormality identified in the abdomen or pelvis no obstructing renal calculi or hydronephros is. Other likely chronic and incidental findings as above. Reviewed by: Anthony Reyna MD on 05/18/2022 6:03 PM [facility] Approved by: Anthony Reyna MD on 05/18/2022 6:03 PM [facility] Station ID: [id number]
== END 2022-05-18 12:52 | disposition home or self-care (01) ==
LOC: DI 12:51
PROVIDERS: ATTEND Internal Medicine
DX: R10.9 Unspecified abdominal pain (principal)

== ENCOUNTER 2022-09-13 14:03 | Outpatient (CLI) | payer OTHER ==
[2022-09-13 14:13] LABS: BASOPHILS % (AUTO) 0.4 %; EOSINOPHILS # (AUTO) 0.2 10^3/uL (0.0-0.7); EOSINOPHILS % (AUTO) 2.8 %; HCT - HEMATOCRIT 39.1 % (42.0-52.0); HGB - HEMOGLOBIN 13.6 g/dL (14.0-18.0); LYMPHOCYTES # (AUTO) 1.2 10^3/uL (1.5-3.5); LYMPHOCYTES % (AUTO) 20.9 %; MEAN CORPUSCULAR HEMOGLOBIN 31.5 pg (27.0-31.0); MEAN CORPUSCULAR HGB CONC 34.8 g/dL (32.0-36.0); MEAN CORPUSCULAR VOLUME 90.5 fL (80.0-94.0); MEAN PLATELET VOLUME 9.6 fL (7.4-11.4); MONOCYTES # (AUTO) 0.6 10^3/uL (0.0-1.0); MONOCYTES % (AUTO) 9.9 %; NEUTROPHILS # (AUTO) 3.7 10^3/uL (1.5-6.6); NEUTROPHILS % (AUTO) 65.6 %; PLT - PLATELET COUNT 259 10^3/uL (130-450); RED BLOOD COUNT 4.32 10^6/uL (4.70-6.10); RED CELL DISTRIBUTION WIDTH 12.1 % (12.0-15.0); WHITE BLOOD COUNT 5.7 x10^3/uL (4.8-10.8)
[2022-09-13 14:36] LABS: % IRON SATURATION 23 % (20-50); IRON 99 ug/dL (45-182); TOTAL IRON BINDING CAPACITY 426 ug/dL (250-450); TRANSFERRIN 304 mg/dL (180-329)
== END 2022-09-13 14:04 | disposition home or self-care (01) ==
LOC: LAB 14:03
PROVIDERS: ATTEND Physician Assistant
DX: D64.9 Anemia, unspecified (principal)
CPT/HCPCS: 36415; 82728; 83540; 84466; 85025

== ENCOUNTER 2023-01-29 15:08 | Outpatient (CLI) | payer OTHER ==
[2023-01-29 16:04] LABS: THYROID STIMULATING HORMONE 0.52 uIU/mL (0.34-5.60)
[2023-02-06 01:08] LABS: 1,25-DIHYDROXY VITAMIN D-2 <10 pg/mL (.); 1,25-DIHYDROXY VITAMIN D-3 53 pg/mL (.); TOTAL 1,25-DIHYDROXYVITAMIN D 56 pg/mL (.)
== END 2023-01-29 15:09 | disposition home or self-care (01) ==
LOC: LAB 15:08
PROVIDERS: ATTEND Psychiatry & Neurology Neurology
DX: R41.3 Other amnesia (principal); E55.9 Vitamin D deficiency, unspecified
CPT/HCPCS: 36415; 82607; 82652; 82746; 84443

== ENCOUNTER 2023-09-20 08:45 | Emergency (ER) | payer MEDICARE, OTHER ==
--- NOTE | 2023-09-20 09:28 | ED Physician Documentation ---
PD HPI SYNCOPE - Stated complaint Stated Complaint: PASSED OUT - Chief complaint Chief Complaint: Neuro - History obtained from History obtained from: Patient - History of Present Illness Witnessed: Unwitnessed Timing - onset: How many hours ago (1) Duration: Seconds, Minutes ( did not see the fainiting but did hear him fall from next room. TO him promptly and he was unresponsive for seconds to a minute though breathing adequate. No noted seizure movement. Able to naser questions once awake. No dazed period.) Preceding symptoms: Nausea / vomiting, Light headed, Generalized weakness. No: Headache, Chest pain, Abdominal pain Associated symptoms: No: Seizure Contributing factors: Just stood up. No: Recent med change, Decreased PO intake, Noxious stimulae Similar symptoms before: Has not had sx before Review of Systems Constitutional: denies: Fever, Chills, Myalgias Nose: denies: Rhinorrhea / runny nose, Congestion Throat: denies: Sore throat Respiratory: denies: Cough GI: denies: Abdominal Pain, Nausea, Vomiting, Diarrhea, Hematemesis, Bloody / black stool : denies: Dysuria, Frequency PD PAST MEDICAL HISTORY - Past Medical History Past Medical History: Yes Cardiovascular: Hypertension, High cholesterol Respiratory: None Neuro: Parkinson's Endocrine/Autoimmune: None GI: GERD : None, Other HEENT: Glaucoma, Other Psych: None Musculoskeletal: None Derm: None - Past Surgical History Past Surgical History: Yes Ortho: Other HEENT: Other - Present Medications Home Medications: Ambulatory Orders Medication Instructions Recorded Confirmed Cholecalciferol (Vitamin D3) 1,000 unit PO QPM 08/22/15 09/20/23 [Vitamin D] Ascorbic Acid [Vitamin C] 500 mg ORAL DAILY 09/20/23 09/20/23 Carbidopa/Levodopa 25/250 [Sinemet 1 each PO TID 09/20/23 09/20/23 25 mg/250 mg] Cyanocobalamin (Vitamin B-12) 500 mcg PO DAILY 09/20/23 09/20/23 [Vitamin B12] Dorzolamide/Timolol Ophth Soln 1 drops OPTH BID 09/20/23 09/20/23 [Cosopt] Latanoprost 0.005% Ophth Drops 1 drops OPTH QPM 09/20/23 09/20/23 [Xalatan Ophth Drops] Multivitamin 1 each PO DAILY 09/20/23 09/20/23 Pantoprazole [Protonix] 40 mg PO BID 09/20/23 09/20/23 diltiaZEM CD [Cardizem Cd] 120 mg PO DAILY #30 cap 09/20/23 gemfibroziL [Lopid] 600 mg PO BIDAC 09/20/23 09/20/23 - Allergies Allergies/Adverse Reactions: Allergies Allergy/AdvReac Type Severity Reaction Status Date / Time No Known Drug Allergies Allergy Verified 09/20/23 09:00 - Social History Does the pt smoke?: No Smoking Status: Never smoker Does the pt drink ETOH?: No Does the pt have substance abuse?: No - Immunizations Immunizations are current?: Yes PD ED PE NORMAL - Vitals Vital signs reviewed: Yes - General General: Alert and oriented X 3, No acute distress, Well developed/nourished - HEENT HEENT: Pharynx benign - Neck Neck: Supple, no meningeal sign, No adenopathy - Cardiac Cardiac: No murmur. No: RRR (irregular and mild tachycardia. 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, No motor deficit, No sensory deficit, Normal speech, Other Eye Opening: Spontaneous Motor: Obeys Commands Verbal: Oriented GCS Score: 15 Results - Vitals Vitals: Vital Signs - 24 hr 09/20/23 09/20/23 09/20/23 08:55 09:28 09:30 Temperature 36.4 C L Heart Rate 71 85 86 Heart Rate [ Sitting] Heart Rate [ Standing] Heart Rate [ Supine] Respiratory 20 12 12 Rate Blood Pressure 117/69 118/89 H 114/77 Blood Pressure [Sitting] Blood Pressure [Standing] Blood Pressure [Supine] O2 Saturation 100 100 100 09/20/23 09/20/23 09/20/23 10:00 10:30 11:58 Temperature Heart Rate 88 67 61 Heart Rate [ Sitting] Heart Rate [ Standing] Heart Rate [ Supine] Respiratory 16 13 11 L Rate Blood Pressure 111/81 H 115/76 118/70 Blood Pressure [Sitting] Blood Pressure [Standing] Blood Pressure [Supine] O2 Saturation 100 100 99 09/20/23 09/20/23 09/20/23 12:30 12:54 13:00 Temperature 36.8 C 36.8 C Heart Rate 69 77 Heart Rate [ 78 Sitting] Heart Rate [ 82 Standing] Heart Rate [ 77 Supine] Respiratory 12 14 Rate Blood Pressure 114/68 114/68 Blood Pressure 120/80 [Sitting] Blood Pressure 120/77 [Standing] Blood Pressure 114/68 [Supine] O2 Saturation 99 100 Oxygen O2 Source Room air - EKG (time done) 09:12 EKG releavant findings:: EKG personally interpreted by author of this note. Relevant findings are: Rate: Rate (enter#) (79) Rhythm: Atrial fibrillation [place]: Normal QRS: Normal Ischemia: Normal ST segments. No: ST elevation c/w ischemia, ST elevation c/w repol 12:49 EKG releavant findings:: EKG personally interpreted by author of this note. Relevant findings are: Rate: Rate (enter#) (64) Rhythm: NSR [place]: Normal Intervals: Normal MD QRS: Normal Ischemia: Normal ST segments. No: ST elevation c/w ischemia, ST depression Compare to prior EKG: Changed from prior EKG (from atrial fib to now NSR. ) - Labs Labs: Laboratory Tests 09/20/23 09/20/23 09/20/23 09:08 09:10 09:10 WBC 8.5 RBC 4.55 L Hgb 14.2 Hct 41.2 L MCV 90.5 MCH 31.2 H MCHC 34.5 RDW 12.4 Plt Count 278 MPV 10.2 Neut # (Auto) 6.8 H Lymph # (Auto) 1.0 L [place] # (Auto) 0.5 Eos # (Auto) 0.2 Baso # (Auto) 0.0 Absolute Nucleated RBC 0.00 Nucleated RBC % 0.0 Sodium 137 Potassium 4.0 Chloride 105 Carbon Dioxide 26 Anion Gap 6.0 BUN 12 Creatinine 0.9 Estimated GFR (MDRD) 82 L Glucose 142 H POC Whole Bld Glucose 126 H Calcium 10.2 Magnesium Total Bilirubin 0.7 AST 20 ALT 4 L Alkaline Phosphatase 31 L Troponin I High Sens 2.7 Total Protein 7.4 Albumin 5.0 Globulin 2.4 Albumin/Globulin Ratio 2.1 Lipase 31 09/20/23 09:10 WBC RBC Hgb Hct MCV MCH MCHC RDW Plt Count MPV Neut # (Auto) Lymph # (Auto) [place] # (Auto) Eos # (Auto) Baso # (Auto) Absolute Nucleated RBC Nucleated RBC % Sodium Potassium Chloride Carbon Dioxide Anion Gap BUN Creatinine Estimated GFR (MDRD) Glucose POC Whole Bld Glucose Calcium Magnesium 1.9 Total Bilirubin AST ALT Alkaline Phosphatase Troponin I High Sens Total Protein Albumin Globulin Albumin/Globulin Ratio Lipase - Rads (name of study) chest xray Relevant Findings:: Prelim report reviewed, EMP independent interpretation of test (no acute process) head CT Relevant Findings:: Prelim report reviewed (no ICH nor acute changes. ), EMP independent interpretation of test PD Medical Decision Making - ED course Complexity details: reviewed results (ECG showing atrial fib on arrival and converted to NSR without specific intervention whil ein ER> BP remains normotensive. Trop and CBC, lytes are good. ), considered differential (syncopal episode without clear cause. He arrived ER with atrial fib rate 90- 115. BP adequate. No other cause for syncope found. Converted to NSR while in ER. ), d/w patient ED course: given the ease of conversion to NSR I feel likely that the atrial fib was recent, and can imagine an abrupt transition to atrial fib with initially fast rate and leading to transient drop in BP. Goal therefore is to reduce chance of parosysm of fib. can go wiht low dose calcium marcelo as would hae lesser likelihood of cause low BP itself. Departure - Departure Disposition: 01 Home, Self Care Clinical Impression: Episode of syncope, Paroxysmal atrial fibrillation Condition: Stable Record reviewed to determine appropriate education?: Yes Instructions: ED Paroxysmal Atrial Flutter Follow-Up: INO GASPAR MD [Primary Care Provider] - Prescriptions: diltiaZEM CD [Cardizem Cd] 120 mg PO DAILY #30 cap Comments: your EKG and heart rhythm initially presenting was atrial fibrillation slightly fast. Commonly when it first initiates it will be much faster and can cause a transient drop in blood pressure. I think this was the cause of your fainting episode. It has returned to a normal rhythm and I would not anticipate a lightheadedness or such at this point. 2 reduce the chance of this occurring again, I would suggest adding a low-dose calcium marcelo called diltiazem 120 mg daily. Also a baby aspirin daily. Continue your other usual medicines. Follow-up with your primary care. It is good that you have an upcoming regular appointment at the end of the month. Call the office and see if in the interim they would want to set you up with a outpatient heart rhythm monitor that you wear for several days to week. Tradename's for these are Holter or Zio patch. Other common tests and evaluating episode of atrial fibrillation can be an ultrasound of the heart (echocardiogram). I presume your primary care will want to set this up at some point outpatient as well. Meanwhile stay well-hydrated. Return if you have recurring episodes with fainting. We would want to try to adjust your medicines otherwise. Check your blood pressure twice daily over the next week. If you find your blood pressures on the low side, then we may need to decrease dose or stop the diltiazem. I sent your prescription to your preferred pharmacy. We did do a CT of your head and there is no signs of bleeding or injury from the fainting/fall. Forms: PCP List Discharge Date/Time: 09/20/23 13:11
[2023-09-20 09:33] LABS: BASOPHILS % (AUTO) 0.4 %; EOSINOPHILS # (AUTO) 0.2 10^3/uL (0.0-0.7); EOSINOPHILS % (AUTO) 1.9 %; HCT - HEMATOCRIT 41.2 % (42.0-52.0); HGB - HEMOGLOBIN 14.2 g/dL (14.0-18.0); LYMPHOCYTES % (AUTO) 11.5 %; MEAN CORPUSCULAR HEMOGLOBIN 31.2 pg (27.0-31.0); MEAN CORPUSCULAR HGB CONC 34.5 g/dL (32.0-36.0); MEAN CORPUSCULAR VOLUME 90.5 fL (80.0-94.0); MEAN PLATELET VOLUME 10.2 fL (7.4-11.4); MONOCYTES # (AUTO) 0.5 10^3/uL (0.0-1.0); MONOCYTES % (AUTO) 6.4 %; NEUTROPHILS # (AUTO) 6.8 10^3/uL (1.5-6.6); NEUTROPHILS % (AUTO) 79.6 %; PLT - PLATELET COUNT 278 10^3/uL (130-450); RED BLOOD COUNT 4.55 10^6/uL (4.70-6.10); RED CELL DISTRIBUTION WIDTH 12.4 % (12.0-15.0); WHITE BLOOD COUNT 8.5 x10^3/uL (4.8-10.8)
[2023-09-20 09:42] LABS: ALBUMIN/GLOBULIN RATIO 2.1 (1.0-2.2); BILIRUBIN,TOTAL 0.7 mg/dL (0.2-1.0); CALCIUM 10.2 mg/dL (8.5-10.3); CREATININE 0.9 mg/dL (0.6-1.3); TOTAL PROTEIN 7.4 g/dL (6.4-8.9)
[2023-09-20 09:49] LABS: TROPONIN I HIGH SENSITIVITY 2.7 ng/L (2.3-19.7)
[2023-09-20] MEDS: SODIUM CHLORIDE 0.9% 1,000 ML IV STA (10:15)
--- NOTE | 2023-09-20 11:09 | XRAY Report ---
PROCEDURE: Chest 1V INDICATIONS: syncope, atrial fib TECHNIQUE: One view of the chest was acquired. COMPARISON: None. FINDINGS: Surgical changes and devices: None. Lungs and pleura: No pleural effusions or pneumothorax. Lungs are clear. Mediastinum: Mediastinal contours appear normal. Heart size is normal. Bones and chest wall: No suspicious bony lesions. Overlying soft tissues appear unremarkable. IMPRESSION: No acute cardiopulmonary process. Reviewed by: Desmond Seay MD on 09/20/2023 10:07 AM KARIN Approved by: Desmond Seay MD on 09/20/2023 10:07 AM KARIN Station ID: [id number]
--- NOTE | 2023-09-20 11:13 | CT Report ---
PROCEDURE: Head WO INDICATIONS: syncope with fall TECHNIQUE: Noncontrast 4.5 mm thick angled axial sections acquired from the foramen magnum to the vertex. For r adiation dose reduction, the following was used: automated exposure control, adjustment of mA and/or kV according to patient size. COMPARISON: None. FINDINGS: Image quality: Excellent. CSF spaces: Basal cisterns are patent. No extra-axial fluid collections. Ventricles are normal in size and shape. Brain: No midline shift. No intracranial masses or hemorrhage. Dockery-white matter interface is norm al. Skull and face: Multiple laurel holes throughout the calvarium. Sinuses: Visualized sinuses and mastoids are clear. IMPRESSION: No acute intracranial pathology. Reviewed by: Desmond Seay MD on 09/20/2023 10:12 AM KARIN Approved by: Desmond Seay MD on 09/20/2023 10:12 AM KARIN Station ID: [id number]
[2023-09-20 12:52] VITALS: BP 114/68
[2023-09-20] MEDS: ASPIRIN EC 81 MG TABLET PO STA (13:00)
[2023-09-20] MEDS: diltiaZEM CD 120 MG CAPSULE PO STA (13:00)
[2023-09-20 13:11] VITALS: O2SAT 100
== END 2023-09-20 13:11 | disposition home or self-care (01) ==
LOC: ED 08:45
DX: R55 Syncope and collapse (principal); I48.0 Paroxysmal atrial fibrillation; I10 Essential (primary) hypertension; E78.00 Pure hypercholesterolemia, unspecified; G20.A1 Parkinson's disease without dyskinesia, without mention of fluctuations; Z79.899 Other long term (current) drug therapy
CPT/HCPCS: 36415; 70450; 71045; 80053; 83690; 83735; 84484; 85025; 93005; 96360; 96361; 99284; A9270

== ENCOUNTER 2023-12-19 15:35 | Emergency (ER) | payer MEDICARE, OTHER ==
--- NOTE | 2023-12-19 16:13 | ED Physician Documentation ---
History of Present Illness - Stated complaint Stated Complaint: ABD PX/DIZZY - Chief complaint Chief Complaint: Abd Pain - History obtained from History obtained from: Patient - History of Present Illness Timing: Prior to arrival - Additonal information Additional information: Patient is a 78-year-old male presenting to the emergency department after a severe episode of epigastric pain that started around 1400. Patient has past medical history remarkable for hypertension, hyperlipidemia, history of atrial fibrillation on diltiazem and aspirin daily. He notes pain was so severe he felt extremely nauseous and lightheaded and passed out for approximately 3 minutes close was driving the car she had to pull off to the side of the road. He notes he was feeling fine prior to this he was having some reflux symptoms that seem to have increased more recently. He denies any pain radiating to his chest back arm or jaw. He denies any history of coronary artery disease. He last had a syncopal episode back on 420 when he was seen in the emergency department diagnosed with atrial fibrillation at that time and follows up with cardiology in [place]. Patient has no history of abdominal surgeries. He notes he was eating and drinking well today. Patient has been started on increased dose of carbidopa levodopa for Parkinson's disease that he does feel has been upsetting his stomach more recently. No fevers chills no changes in bowel movement or urination. PD PAST MEDICAL HISTORY - Past Medical History Past Medical History: Yes Cardiovascular: Hypertension, High cholesterol Respiratory: None Neuro: Parkinson's Endocrine/Autoimmune: None GI: GERD : None, Other HEENT: Glaucoma, Other Psych: None Musculoskeletal: None Derm: None - Past Surgical History Past Surgical History: Yes Ortho: Other HEENT: Other - Present Medications Home Medications: Ambulatory Orders Medication Instructions Recorded Confirmed Cholecalciferol (Vitamin D3) 1,000 unit PO QPM 08/22/15 09/20/23 [Vitamin D] Ascorbic Acid [Vitamin C] 500 mg ORAL DAILY 09/20/23 09/20/23 Carbidopa/Levodopa 25/250 [Sinemet 1 each PO TID 09/20/23 09/20/23 25 mg/250 mg] Cyanocobalamin (Vitamin B-12) 500 mcg PO DAILY 09/20/23 09/20/23 [Vitamin B12] Dorzolamide/Timolol Ophth Soln 1 drops OPTH BID 09/20/23 09/20/23 [Cosopt] Latanoprost 0.005% Ophth Drops 1 drops OPTH QPM 09/20/23 09/20/23 [Xalatan Ophth Drops] Multivitamin 1 each PO DAILY 09/20/23 09/20/23 Pantoprazole [Protonix] 40 mg PO BID 09/20/23 09/20/23 diltiaZEM CD [Cardizem Cd] 120 mg PO DAILY #30 cap 09/20/23 gemfibroziL [Lopid] 600 mg PO BIDAC 09/20/23 09/20/23 - Allergies Allergies/Adverse Reactions: Allergies Allergy/AdvReac Type Severity Reaction Status Date / Time niacin AdvReac Rash Verified 12/19/23 15:48 - Social History Does the pt smoke?: No Smoking Status: Never smoker Does the pt drink ETOH?: No Does the pt have substance abuse?: No - Immunizations Immunizations are current?: Yes PD ED PE NORMAL - General General: Alert and oriented X 3 - HEENT HEENT: Atraumatic - Neck Neck: Supple, no meningeal sign - Cardiac Cardiac: RRR, No murmur, No gallop, No rub, Strong equal pulses - Respiratory Respiratory: No respiratory distress - Abdomen Abdomen: Normal bowel sounds, Soft, Non tender, Non distended - Back Back: No CVA TTP - Derm Derm: Normal color - Extremities Extremities: No deformity - Neuro Neuro: Alert and oriented X 3 Verbal: Oriented - Psych Psych: Normal mood Results - Vitals Vitals: Vital Signs - 24 hr 12/19/23 15:48 Temperature 36.7 C Heart Rate 50 L Respiratory 16 Rate Blood Pressure 120/67 O2 Saturation 99 Oxygen O2 Source Room air - EKG (time done) 1605 EKG releavant findings:: EKG personally interpreted by author of this note. Relevant findings are: Rate: Rate (enter#) (50 bpm) Rhythm: Sinus bradycardia [place]: Normal QRS: Normal Ischemia: Normal ST segments Compare to prior EKG: Changed from prior EKG (Prior EKG showed Atrial fibrillation, patient is in normal sinus rhythm), Other - Labs Labs: Laboratory Tests 12/19/23 12/19/23 12/19/23 16:08 16:14 16:14 WBC 8.0 RBC 4.00 L Hgb 12.5 L Hct 37.1 L MCV 92.8 MCH 31.3 H MCHC 33.7 RDW 12.2 Plt Count 230 MPV 9.8 Neut # (Auto) 6.4 Lymph # (Auto) 0.9 L [place] # (Auto) 0.6 Eos # (Auto) 0.2 Baso # (Auto) 0.0 Absolute Nucleated RBC 0.00 Nucleated RBC % 0.0 Sodium 136 Potassium 4.1 Chloride 105 Carbon Dioxide 26 Anion Gap 5.0 L BUN 13 Creatinine 0.8 Estimated GFR (MDRD) 94 Glucose 113 H Calcium 10.0 Total Bilirubin 0.7 AST 15 ALT < 3 L Alkaline Phosphatase 27 L Troponin I High Sens 2.5 Total Protein 7.0 Albumin 4.5 Globulin 2.5 Albumin/Globulin Ratio 1.8 Lipase 25 PD Medical Decision Making - ED course Complexity details: reviewed old records, reviewed results, re-evaluated patient Reviewed Lab Results: CBC reassuring no signs of anemia no signs of leukocytosis CMP shows no significant electrolyte abnormalities no sign of elevation in AST or ALT. Troponin returned within normal range and EKG shows normal sinus rhythm no signs of ST elevation or depression. Lipase ED course: Patient is a 78-year-old male presenting with past medical history of hypertension hyperlipidemia and atrial fibrillation to the emergency department after severe epigastric pain and nausea that started about 2 hours prior to arrival. Patient presents with improvement in symptoms. He notes he had a syncopal episode for about 30 minutes prior to waking back up he has nausea resolved and he is feeling slightly better. He notes he has no upper abdominal pain or chest pain at this time. Labs are reassuring here in the emergency department no elevation in troponin EKG is reassuring physical exam shows abdomen is soft nontender no reproducible chest pain normal cardiac and lung sounds on auscultation. Pulses intact in upper and lower extremities. Vitals monitored while patient is here in the emergency department show normotensive nontachycardic afebrile. Patient given a dose of Zofran here in the emergency department which he tolerated well patient had improvement in symptoms. Chest x-ray and lipase were obtained while here showing no elevation in lipase, low suscpicion for pancreatitis or cholecystitis LFTs are within normal range and abdomen tenderness has resolved. Low suspicion for any ACS or cardiac cause at this time as EKG is reassuring troponin is within normal range chest x-ray shows Low lung volumes but no other findings of pneumonia or pneumothorax or signs of fluid overload or cardiomegaly mediastinum is within range. Given reassuring workup here in the emergency department vitals remaining stable and patient feeling improved here in the emergency department. He was p.o. challenged. 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 Patient instructed to follow-up with PCP as well and return to the ED with any dizziness, lightheadedness, numbness tingling, nausea vomiting, increased abdominal pain or any other new or worsening symptoms. Departure - Departure Forms: PCP List
[2023-12-19 16:19] LABS: BASOPHILS % (AUTO) 0.3 %; EOSINOPHILS # (AUTO) 0.2 10^3/uL (0.0-0.7); HCT - HEMATOCRIT 37.1 % (42.0-52.0); HGB - HEMOGLOBIN 12.5 g/dL (14.0-18.0); LYMPHOCYTES # (AUTO) 0.9 10^3/uL (1.5-3.5); LYMPHOCYTES % (AUTO) 10.7 %; MEAN CORPUSCULAR HEMOGLOBIN 31.3 pg (27.0-31.0); MEAN CORPUSCULAR HGB CONC 33.7 g/dL (32.0-36.0); MEAN CORPUSCULAR VOLUME 92.8 fL (80.0-94.0); MEAN PLATELET VOLUME 9.8 fL (7.4-11.4); MONOCYTES # (AUTO) 0.6 10^3/uL (0.0-1.0); MONOCYTES % (AUTO) 6.9 %; NEUTROPHILS # (AUTO) 6.4 10^3/uL (1.5-6.6); NEUTROPHILS % (AUTO) 79.8 %; PLT - PLATELET COUNT 230 10^3/uL (130-450); RED CELL DISTRIBUTION WIDTH 12.2 % (12.0-15.0)
[2023-12-19 16:41] LABS: TROPONIN I HIGH SENSITIVITY 2.5 ng/L (2.3-19.7)
[2023-12-19 16:46] LABS: ALBUMIN 4.5 g/dL (3.2-5.5); ALBUMIN/GLOBULIN RATIO 1.8 (1.0-2.2); ALKALINE PHOSPHATASE 27 IU/L (42-121); ALT ALANINE AMINOTRANSFERASE < 3 IU/L (10-60); AST ASPARTATE AMINOTRANSFERASE 15 IU/L (10-42); BILIRUBIN,TOTAL 0.7 mg/dL (0.2-1.0); BUN - BLOOD UREA NITROGEN 13 mg/dL (6-20); CARBON DIOXIDE - CO2 26 mmol/L (21-32); CHLORIDE 105 mmol/L (101-111); CREATININE 0.8 mg/dL (0.6-1.3); GFR - MDRD 94 (>89); GLUCOSE 113 mg/dL (74-104); POTASSIUM 4.1 mmol/L (3.5-4.5); SODIUM 136 mmol/L (135-145)
[2023-12-19] MEDS: ONDANSETRON 4 MG/2 ML VIAL IVP STA (16:57)
--- NOTE | 2023-12-19 17:17 | XRAY Report ---
PROCEDURE: Chest 1V INDICATIONS: chest pain/ epigastric pain TECHNIQUE: One view of the chest was acquired. COMPARISON: 09/20/2019 FINDINGS: Surgical changes and devices: None. Lungs and pleura: No dense consolidation or pleural effusion. Low lung volumes, limiting evaluation. Mediastinum: Unchanged cardiac mediastinal contours. Bones and chest wall: Degenerative changes IMPRESSION: No dense consolidation or pleural effusion. Low lung volumes on portable single view radiograph, limi ting evaluation. Reviewed by: Anthony Reyna MD on 12/19/2023 5:16 PM PDT Approved by: Anthony Reyna MD on 12/19/2023 5:16 PM PDT Station ID: [id number]
[2023-12-19 18:28] VITALS: BP 135/83; O2SAT 95
== END 2023-12-19 18:28 | disposition home or self-care (01) ==
LOC: ED 15:35
DX: E86.0 Dehydration (principal); R10.13 Epigastric pain; R55 Syncope and collapse; I10 Essential (primary) hypertension; E78.5 Hyperlipidemia, unspecified; I48.91 Unspecified atrial fibrillation; Z79.82 Long term (current) use of aspirin; G20.A1 Parkinson's disease without dyskinesia, without mention of fluctuations; Z79.899 Other long term (current) drug therapy
CPT/HCPCS: 36415; 80053; 83690; 84484; 85025; 93005; 96374; 99284